=== PATIENT | female | born 1935 | race Caucasian/White ===

== ENCOUNTER → 2018-03-26 | Day surgery (SDC) | payer MEDICARE, BC ==
[~2018-03-26] MED LIST: Lactated Ringers 1,000 ML IV SCH; Propofol 200 MG/20 ML SDV IV ONE
--- NOTE | 2018-03-26 10:24 | OR ---
DATE OF OPERATION: 03/26/2018 PREOPERATIVE DIAGNOSIS: POSITIVE COLOGUARD. POSTOPERATIVE DIAGNOSIS: POSITIVE COLOGUARD. SURGEON: Douglas De La Cruz MD PROCEDURE: FULL-LENGTH COLONOSCOPY. ANESTHESIA: [employer] due to advanced age. COMPLICATIONS: None. SPECIMEN: None. FINDINGS: 1. Normal full-length colonoscopy. 2. Minimal sigmoid diverticulosis. RECOMMENDATIONS: Medical followup with Dr. Nguyen. Colonoscopy on a p.r.n. basis only. INDICATIONS: The patient apparently had a physical, and a Cologuard was obtained that was positive. She was sent for colonoscopy. DESCRIPTION OF PROCEDURE: The patient was prepped and draped, placed in the left lateral decubitus position. A lubricated Olympus colonoscope was inserted, and with ease advanced to the cecum. Direct visualization of the ileocecal valve and appendiceal orifice was accomplished. The bowel prep was fine. Upon withdrawal of the scope throughout the entire length of the colon, I could find no signs of any polyps, mass, ulceration, or bleeding sites. No vascular abnormalities or signs of colitis. There were no masses or signs of malignancy. A few scattered diverticula in the sigmoid area without any inflammation, but minimal in severity. The rectal vault was benign. Retroflexion of the scope in the rectum showed no perianal lesions. Air was suctioned, and the scope removed without complication. AMIE/ANMOL /[id number]
== END ==
LOC: CC.SDS 06:44
PROVIDERS: ATTEND Family Medicine
DX: K57.30 Diverticulosis of large intestine without perforation or abscess without bleeding (principal); I10 Essential (primary) hypertension; I25.2 Old myocardial infarction; E78.00 Pure hypercholesterolemia, unspecified; F41.9 Anxiety disorder, unspecified; M19.90 Unspecified osteoarthritis, unspecified site; M81.0 Age-related osteoporosis without current pathological fracture; Z88.0 Allergy status to penicillin; Z88.1 Allergy status to other antibiotic agents; Z87.891 Personal history of nicotine dependence; Z79.82 Long term (current) use of aspirin; Z79.899 Other long term (current) drug therapy
CPT/HCPCS: 45378; J2704; J7120; 00811

== ENCOUNTER → 2020-10-19 | Day surgery (SDC) | payer MEDICARE, BC ==
[~2020-10-19] MED LIST changes: +Ketamine 200 MG/20 ML MDV ONE; -Lactated Ringers 1,000 ML IV SCH; -Propofol 200 MG/20 ML SDV IV ONE; +Propofol 200 MG/20 ML SDV ONE
[2020-10-19] MEDS: Lactated Ringers 1,000 ML IV SCH (09:12)
--- NOTE | 2020-10-19 12:46 | OR ---
DATE OF OPERATION: 10/19/2020 PREOPERATIVE DIAGNOSIS: CHANGE IN BOWEL FUNCTION. POSTOPERATIVE DIAGNOSIS: CHANGE IN BOWEL FUNCTION. SURGEON: Arnaud Duran MD PROCEDURE: TOTAL COLONOSCOPY. ANESTHESIA: MAC. SPECIMEN: None. FINDINGS: Totally normal colonoscopy. RECOMMENDATIONS: Followup colonoscopy only as needed. INDICATIONS: This 84-year-old female has a significant change in her bowel function. DESCRIPTION OF PROCEDURE: After adequate preparation, a colonoscope was inserted into the rectum. This was easily passed all the way to the cecum. Confirmation of the cecum was made by visualization of the ileocecal valve, light shining through the right lower quadrant, and by palpation. Photograph of the valve was taken. The bowel prep was very good. On withdrawal of the scope, the entire colon was seen easily. There were no abnormalities. Air was suctioned from the colon, and the scope removed. BPB/MODL /[id number]
== END ==
LOC: CC.SDS 08:45
PROVIDERS: ATTEND Surgery
DX: R19.4 Change in bowel habit (principal); E78.5 Hyperlipidemia, unspecified; E78.00 Pure hypercholesterolemia, unspecified; I25.2 Old myocardial infarction; I25.10 Atherosclerotic heart disease of native coronary artery without angina pectoris; I11.0 Hypertensive heart disease with heart failure; Z88.1 Allergy status to other antibiotic agents; Z79.899 Other long term (current) drug therapy; Z90.49 Acquired absence of other specified parts of digestive tract; Z98.890 Other specified postprocedural states
CPT/HCPCS: J2704; J7120